=== PATIENT | female | born 1965 | race Caucasian/White ===

== ENCOUNTER 2021-08-05 18:23 | Outpatient (REF) | payer BC, SELFPAY ==
[2021-08-05 18:46] LABS: Bilirubin Negative (Negative); Ketones Negative (Negative); Urobilinogen 0.2 EU/dL (Up TO 0.2)
[2021-08-05 19:13] LABS: Bacteria Many HPF (Negative); C & S Indicated? C&S Done As Ordered; Casts Negative LPF (Negative); Crystals Negative HPF (Negative); Mucus Negative (Negative); Other Cells Negative (Negative); WBC 20-50 HPF (0-5)
[2021-08-06 08:31] LABS: Clarity Cloudy (Clear); Specific Gravity 1.015 (1.005-1.025)
[2021-08-06 08:32] LABS: Leukocyte Esterase Moderate (Negative)
[2021-08-06 08:33] LABS: Glucose Negative (Negative); Nitrite Negative (Negative); pH 7.5 (5-8)
[2021-08-06 08:34] LABS: Blood Negative (Negative)
[2021-08-06 08:35] LABS: Epithelial Cells Few HPF (Negative); RBC 0-2 HPF (0-2)
== END 2021-08-05 18:24 | disposition home or self-care (01) ==
LOC: NCHCN 18:23
PROVIDERS: PCP Nurse Practitioner; Visit Provider Nurse Practitioner Family
DX: N39.0 Urinary tract infection, site not specified (principal)
CPT/HCPCS: 87077; 81003; 81015; 87086; 87186

== ENCOUNTER 2021-08-30 17:06 | Outpatient (REF) | payer BC, SELFPAY ==
[2021-08-30 20:54] LABS: Bilirubin Negative (Negative); Blood Small (Negative); Clarity Cloudy (Clear); Glucose Negative (Negative); Ketones Negative (Negative); Leukocyte Esterase Large (Negative); Nitrite Negative (Negative); Urobilinogen 0.2 EU/dL (Up TO 0.2)
[2021-08-30 21:04] LABS: Bacteria Few HPF (Negative); Crystals Negative HPF (Negative); Epithelial Cells Few HPF (Negative); Mucus Negative (Negative); RBC 0-2 HPF (0-2); WBC >50 HPF (0-5)
[2021-08-30 21:05] LABS: C & S Indicated? C&S Done As Ordered
== END 2021-08-30 17:07 | disposition home or self-care (01) ==
LOC: LBN 17:06
PROVIDERS: PCP Nurse Practitioner; Visit Provider Physician Assistant Medical
DX: N39.0 Urinary tract infection, site not specified (principal)
CPT/HCPCS: 87077; 81003; 81015; 87086; 87186

== ENCOUNTER 2021-09-04 20:54 | Outpatient (REF) | payer BC, SELFPAY | END 2021-09-04 20:55 | disposition home or self-care (01) | LOC: NCHCN 20:54 | PROVIDERS: PCP Nurse Practitioner; Visit Provider Nurse Practitioner Family | DX: N39.0 Urinary tract infection, site not specified (principal) | CPT/HCPCS: 87086 ==

== ENCOUNTER 2021-09-25 16:09 | Outpatient (REF) | payer BC, SELFPAY ==
[2021-09-25 15:51] LABS: Anion Gap 6.9 mmol/L (3-11); BUN 19 mg/dL (7-18); CO2 27.1 mmol/L (21.0-32.0); CREATININE 0.7 mg/dL (0.55-1.02); Calcium 9.1 mg/dL (8.5-10.1); Calculated LDL 110 mg/dL (<100); Chloride 102 mmol/L (98-107); Cholesterol 220 mg/dL (<200); Glucose 103 mg/dL (74-106); HDL Cholesterol 103 mg/dL (40-60); Potassium 3.9 mmol/L (3.5-5.1); Sodium 136 mmol/L (136-145); Triglyceride 35 mg/dL (<150)
== END 2021-09-25 16:10 | disposition home or self-care (01) ==
LOC: NCHCN 16:09
PROVIDERS: PCP Nurse Practitioner; Visit Provider Nurse Practitioner Family
DX: Z13.220 Encounter for screening for lipoid disorders (principal); Z13.1 Encounter for screening for diabetes mellitus; Z87.448 Personal history of other diseases of urinary system
CPT/HCPCS: 80048; 80061

== ENCOUNTER 2023-03-12 13:21 | Outpatient (REF) | payer BC, SELFPAY ==
[2023-03-12 16:39] LABS: Abs Immature Grans 0.02 10^3/uL (0.0-0.06); Absolute Basophil Count 0.02 10^3/uL (0.0-0.2); Absolute Eosinophil Count 0.25 10^3/uL (0.0-0.7); Absolute Lymphocyte Count 1.89 10^3/uL (1.2-3.4); Absolute Neutrophil Count 5.16 10^3/uL (1.2-6.7); Basophils % 0.3; Eosinophils % 3.2; HCT 38.4 % (36.0-46.0); Immature Grans % 0.3; Lymphocytes % 24.4; MCH 29.6 pg (27.0-33.0); MCHC 33.9 % (32.0-36.0); MCV 88 fL (80-95); MPV 11.1 fL (8.0-11.0); Monocytes % 5.2; Neutrophils % 66.6; Platelet Count 230 10^3/uL (130-400); RBC 4.39 10^6/uL (3.93-5.22); RDW 12.5 % (11.7-14.6); RDW-SD 40.1 fL; WBC 7.74 10^3/uL (4.4-10.8)
[2023-03-12 16:51] LABS: ESR 18 mm/hr (0-30)
[2023-03-12 17:15] LABS: D-Dimer 371 ng/mlFEU (<500)
== END 2023-03-12 13:22 | disposition home or self-care (01) ==
LOC: NCHCN 13:21
PROVIDERS: PCP Nurse Practitioner; Visit Provider Family Medicine
DX: R22.41 Localized swelling, mass and lump, right lower limb (principal)
CPT/HCPCS: 85652; 85025; 85379

== ENCOUNTER 2024-10-05 15:57 | Outpatient (REF) | payer BC, SELFPAY ==
[2024-10-05 21:31] LABS: HCT 36.9 % (36.0-46.0); HGB 12.0 g/dL (11.2-15.7); MCH 28.7 pg (27.0-33.0); MCHC 32.5 % (32.0-36.0); MCV 88 fL (80-95); MPV 11.1 fL (8.0-11.0); Platelet Count 196 10^3/uL (130-400); RBC 4.18 10^6/uL (3.93-5.22); RDW 13.4 % (11.7-14.6); RDW-SD 43.2 fL; WBC 5.85 10^3/uL (4.4-10.8)
[2024-10-05 22:18] LABS: ALT 34 U/L (14-59); AST 22 U/L (15-37); Albumin 4.2 g/dL (3.4-5.0); Alkaline Phosphatase 86 U/L (46-116); Anion Gap 11.1 mmol/L (3-11); BUN 17 mg/dL (7-18); Bilirubin, Total 0.5 mg/dL (0.2-1.0); CO2 25.9 mmol/L (21.0-32.0); Calcium 9.3 mg/dL (8.5-10.1); Calculated LDL 100 mg/dL (<100); Chloride 104 mmol/L (98-107); Cholesterol 201 mg/dL (<200); Estimated GFR 100.81 (mL/min/1.73m2); Glucose 94 mg/dL (74-106); HDL Cholesterol 89 mg/dL (>or=50); Potassium 3.9 mmol/L (3.5-5.1); Sodium 141 mmol/L (136-145); TSH 2.79 uIU/mL (0.36-3.74); Total Protein 7.4 g/dL (6.4-8.2); Triglyceride 64 mg/dL (<150); Vitamin B12 398 pg/mL (193-986); Vitamin D 25 Total 35 ng/mL (30-100)
== END 2024-10-05 15:58 | disposition home or self-care (01) ==
LOC: NCHCN 15:57
PROVIDERS: Visit Provider Nurse Practitioner Family
DX: Z00.00 Encounter for general adult medical examination without abnormal findings (principal)
CPT/HCPCS: 80053; 80061; 82306; 85027; 82607; 84443